=== PATIENT | female | born 1930 | race African-American/Black ===

== ENCOUNTER 2017-07-18 19:17 | Inpatient (IN) ==
[2017-07-18] MEDS ORDERED: SODIUM CHLORIDE 0.9% 500 ML IV STA (21:42)
[2017-07-18] MEDS ORDERED: PANTOPRAZOLE 40 MG VIAL IV STA (21:42)
[2017-07-18] MEDS ORDERED: PANTOPRAZOLE 40 MG VIAL IV ONE (22:03)
[2017-07-18 22:43] LABS: Basophils # 0.1 10*3/uL (0.0-0.2); Basophils % 0.8 % (0.0-0.8); Eosinophils % 0.1 % (0.00-10.9); Hematocrit 25.7 VOL% (35.7-47.0); Hemoglobin 8.1 GM/DL (12.0-16.0); Immature Granulocytes % 0.9 %; Immature Granulocytes Absolute 0.07 #; Lymphocytes # 0.8 10*3/uL (1.4-4.0); Lymphocytes % 10.4 % (21.3-54.2); Mean Corpuscular HGB Conc 31.5 GM/DL (32-36); Mean Corpuscular Hemoglobin 31 PG (27-34); Mean Corpuscular Volume 96.6 FL (87-102); Mean Platelet Volume 9.2 FL (9.6-12.0); Monocytes # 0.3 10*3/uL (0.11-0.8); Monocytes % 4.4 % (1.7-12.7); NRBC # 0.02 10*3/uL; Neutrophils # 6.2 10*3/uL (1.4-7.4); Neutrophils % 83.4 % (38.7-73.9); Platelet Count 303 T/CUMM (130-400); Red Blood Count 2.66 MC/CUMM (3.8-5.5); Red Cell Distribution Width 15.5 % (9.3-17.3); White Blood Count 7.4 T/CUMM (4-12)
[2017-07-18 22:51] LABS: PT Patient Result 10.9 SECS; Partial Thromboplastin Time 26.6 SECS (0-40)
[2017-07-18 23:02] LABS: Alanine Aminotransferase 14 U/L (13-56); Albumin 3.1 G/DL (3.4-5.0); Alkaline Phosphatase 66 U/L (45-117); Aspartate Amino Transferase 18 U/L (0-37); Bilirubin,Total < 0.39 MG/DL (0.2-1.0); Blood Urea Nitrogen 30 MG/DL (7-18); Calcium 8.3 MG/DL (8.5-10.1); Glucose 99 MG/DL (74-106); Osmolality,Calculated 282.5 MOS/KG (273-304); Potassium 4.2 MMOL/L (3.5-5.1); Sodium 139 MMOL/L (136-145); Total Protein 5.7 G/DL (6.4-8.3); Troponin I Only 0.024 NG/ML (0.00-0.045)
[2017-07-19] MEDS ORDERED: SODIUM CHLORIDE 0.9% 1,000 ML IV PRN (01:31)
[2017-07-19 06:21] LABS: Basophils % 0.7 % (0.0-0.8); Hematocrit 23.9 VOL% (35.7-47.0); Hemoglobin 7.6 GM/DL (12.0-16.0); Immature Granulocytes % 1.1 %; Immature Granulocytes Absolute 0.06 #; Lymphocytes # 1.2 10*3/uL (1.4-4.0); Lymphocytes % 20.8 % (21.3-54.2); Mean Corpuscular HGB Conc 31.8 GM/DL (32-36); Mean Corpuscular Hemoglobin 30 PG (27-34); Mean Corpuscular Volume 95.2 FL (87-102); Mean Platelet Volume 9.5 FL (9.6-12.0); Monocytes # 0.5 10*3/uL (0.11-0.8); Monocytes % 8.2 % (1.7-12.7); Neutrophils % 69.2 % (38.7-73.9); Platelet Count 286 T/CUMM (130-400); Red Blood Count 2.51 MC/CUMM (3.8-5.5); Red Cell Distribution Width 15.5 % (9.3-17.3); White Blood Count 5.7 T/CUMM (4-12)
[2017-07-19] MEDS: SODIUM CHLORIDE 0.9% 1,000 ML IV SCH ×2 (06:31→17:28)
[2017-07-19 06:53] LABS: Calcium 8.5 MG/DL (8.5-10.1); Osmolality,Calculated 285.3 MOS/KG (273-304); Potassium 4.5 MMOL/L (3.5-5.1)
[2017-07-19] MEDS: PANTOPRAZOLE 40 MG VIAL IV SCH (09:24)
[2017-07-19] MEDS ORDERED: HYOSCYAMINE 0.125 MG TABLET PO PRN (16:46)
[2017-07-19] MEDS: ONDANSETRON 4 MG/2 ML VIAL IV PRN (20:17)
[2017-07-20 05:12] LABS: Basophils % 0.3 % (0.0-0.8); Hematocrit 19.5 VOL% (35.7-47.0); Immature Granulocytes % 1.6 %; Immature Granulocytes Absolute 0.16 #; Mean Corpuscular HGB Conc 31.3 GM/DL (32-36); Mean Corpuscular Hemoglobin 29 PG (27-34); Mean Corpuscular Volume 91.5 FL (87-102); Mean Platelet Volume 9.9 FL (9.6-12.0); Monocytes # 0.4 10*3/uL (0.11-0.8); Monocytes % 4.1 % (1.7-12.7); NRBC # 0.11 10*3/uL; Neutrophils # 8.5 10*3/uL (1.4-7.4); Platelet Count 298 T/CUMM (130-400); Red Blood Count 2.13 MC/CUMM (3.8-5.5); Red Cell Distribution Width 19.2 % (9.3-17.3); White Blood Count 10.1 T/CUMM (4-12)
[2017-07-20 05:30] LABS: Hemoglobin 6.1 GM/DL (12.0-16.0)
[2017-07-20 05:47] LABS: Osmolality,Calculated 297.7 MOS/KG (273-304); Potassium 4.6 MMOL/L (3.5-5.1)
[2017-07-20] MEDS ORDERED: SODIUM CHLORIDE 0.9% 1,000 ML IV PRN ×2 (05:47→09:13)
[2017-07-20 05:50] LABS: % Iron Saturation 6.9 % (18-50); Ferritin 14.2 ng/ml (8-252)
[2017-07-20] MEDS ORDERED: oxyCODONE IR 5 MG TABLET PO ONE (06:34)
[2017-07-20] MEDS: PANTOPRAZOLE 40 MG VIAL IV SCH (09:23)
[2017-07-20 09:35] LABS: Sedimentation Rate-Westergren 13 MM/HR (0-30)
[2017-07-20] MEDS: SODIUM CHLORIDE 0.9% 1,000 ML IV SCH (11:55)
[2017-07-20 12:02] LABS: Folate 18.2 NG/ML (5.4-24.0); Vitamin B12 561 PG/ML (211-911)
[2017-07-20] MEDS ORDERED: INFLUENZA VIRUS VACCINE 0.5 ML SYRINGE IM ONE (12:20)
[2017-07-20] MEDS ORDERED: FUROSEMIDE 40 MG/4 ML VIAL IV ONE (14:07)
[2017-07-20] MEDS: hydrALAZINE 20 MG/1 ML VIAL IV PRN (18:23)
[2017-07-20 18:41] LABS: Hemoglobin 10.1 GM/DL (12.0-16.0)
[2017-07-20] MEDS: ONDANSETRON 4 MG/2 ML VIAL IV PRN (22:44)
[2017-07-21] MEDS: SODIUM CHLORIDE 0.9% 1,000 ML IV SCH ×3 (09:07→23:50)
[2017-07-21] MEDS: PANTOPRAZOLE 40 MG VIAL IV SCH (09:10)
[2017-07-21 09:15] LABS: Basophils # 0.1 10*3/uL (0.0-0.2); Basophils % 0.4 % (0.0-0.8); Hematocrit 24.9 VOL% (35.7-47.0); Immature Granulocytes % 1.8 %; Immature Granulocytes Absolute 0.26 #; Lymphocytes # 1.7 10*3/uL (1.4-4.0); Lymphocytes % 11.4 % (21.3-54.2); Mean Corpuscular HGB Conc 32.1 GM/DL (32-36); Mean Corpuscular Hemoglobin 29 PG (27-34); Mean Corpuscular Volume 90.9 FL (87-102); Mean Platelet Volume 9.1 FL (9.6-12.0); Monocytes # 1.4 10*3/uL (0.11-0.8); Monocytes % 9.6 % (1.7-12.7); NRBC # 0.64 10*3/uL; Neutrophils # 11.1 10*3/uL (1.4-7.4); Neutrophils % 76.8 % (38.7-73.9); Platelet Count 287 T/CUMM (130-400); Red Blood Count 2.74 MC/CUMM (3.8-5.5); White Blood Count 14.4 T/CUMM (4-12)
[2017-07-21 09:34] LABS: Calcium 7.5 MG/DL (8.5-10.1); Osmolality,Calculated 299.1 MOS/KG (273-304)
[2017-07-21] MEDS ORDERED: SODIUM CHLORIDE 0.9% 1,000 ML IV SCH (11:00)
[2017-07-21] MEDS ORDERED: ETOMIDATE 20 MG/10 ML VIAL IV ONE (12:17)
[2017-07-21] MEDS ORDERED: LIDOCAINE 2% 5 ML VIAL ONE (12:17)
[2017-07-21] MEDS ORDERED: PROPOFOL 200 MG/20 ML VIAL IV ONE (12:17)
[2017-07-21 13:09] LABS: Hemoglobin A1 (Alkaline) 97.1 % (96.5-98.5); Hemoglobin A2 (Alkaline) 2.9 % (1.5-3.5)
[2017-07-21] MEDS: hydrALAZINE 20 MG/1 ML VIAL IV PRN (15:42)
[2017-07-21] MEDS: ONDANSETRON 4 MG/2 ML VIAL IV PRN ×2 (16:44→20:44)
[2017-07-22] MEDS: SODIUM CHLORIDE 0.9% 1,000 ML IV SCH ×3 (02:40→23:54)
[2017-07-22] MEDS: PANTOPRAZOLE 40 MG VIAL IV SCH (09:09)
[2017-07-22] MEDS ORDERED: BISACODYL 5 MG TABLET PO ONE (12:00)
[2017-07-22] MEDS: ONDANSETRON 4 MG/2 ML VIAL IV PRN ×2 (12:36→19:36)
[2017-07-22] MEDS ORDERED: POLYETHYLENE GLYCOL POWDER 255 GM BOTTLE PO ONE (14:00)
[2017-07-22] MEDS ORDERED: MAGNESIUM CITRATE 300 ML BOTTLE PO ONE (21:00)
[2017-07-23 06:44] LABS: Osmolality,Calculated 294.6 MOS/KG (273-304); Potassium 3.9 MMOL/L (3.5-5.1)
[2017-07-23] MEDS ORDERED: SODIUM CHLORIDE 0.9% 1,000 ML IV PRN (06:54)
[2017-07-23] MEDS ORDERED: CALCIUM GLUCONATE 1,000 MG in SODIUM CHLORIDE 0.9% 100 ML IV ONE (06:55)
[2017-07-23] MEDS: PANTOPRAZOLE 40 MG VIAL IV SCH (08:55)
[2017-07-23] MEDS ORDERED: LIDOCAINE 1% 5 ML VIAL ONE (11:10)
[2017-07-23] MEDS ORDERED: PROPOFOL 200 MG/20 ML VIAL IV ONE (11:10)
[2017-07-23] MEDS ORDERED: ONDANSETRON 4 MG/2 ML VIAL ONE (11:10)
[2017-07-23] MEDS ORDERED: MAGNESIUM CITRATE 300 ML BOTTLE PO ONE (11:43)
[2017-07-23] MEDS: SODIUM CHLORIDE 0.9% 1,000 ML IV SCH ×2 (15:51→21:55)
[2017-07-24 07:10] LABS: Basophils % 0.8 % (0.0-0.8); Eosinophils # 0.1 10*3/uL (0.0-0.87); Eosinophils % 1.5 % (0.00-10.9); Hematocrit 24.6 VOL% (35.7-47.0); Immature Granulocytes % 1.1 %; Immature Granulocytes Absolute 0.06 #; Lymphocytes # 1.2 10*3/uL (1.4-4.0); Lymphocytes % 23.4 % (21.3-54.2); Mean Corpuscular HGB Conc 31.7 GM/DL (32-36); Mean Corpuscular Hemoglobin 28 PG (27-34); Mean Corpuscular Volume 89.5 FL (87-102); Mean Platelet Volume 8.9 FL (9.6-12.0); Monocytes # 0.5 10*3/uL (0.11-0.8); Monocytes % 8.8 % (1.7-12.7); NRBC # 0.17 10*3/uL; Neutrophils # 3.4 10*3/uL (1.4-7.4); Neutrophils % 64.4 % (38.7-73.9); Platelet Count 272 T/CUMM (130-400); Red Blood Count 2.75 MC/CUMM (3.8-5.5); Red Cell Distribution Width 15.9 % (9.3-17.3)
[2017-07-24 07:45] LABS: White Blood Count 5.2 T/CUMM (4-12)
[2017-07-24 07:46] LABS: Hemoglobin 7.8 GM/DL (12.0-16.0)
[2017-07-24] MEDS: PANTOPRAZOLE 40 MG VIAL IV SCH (09:49)
[2017-07-24 10:42] LABS: Apearance,Urine Slightly Hazy (Clear); Bacteria,Urine Many /HPF (Few); Bilirubin,Urine Negative (Negative); Blood, Urine Negative (Negative); Glucose,Urine (UA) Negative (Negative); Ketones,Urine Negative (Negative); Mucus,Urine Occasional /LPF (Occasional); Nitrite,Urine Negative (Negative); Protein,Urine Negative; Squamous Epithelial Cell,Urine Occasional /HPF (0-10); Urine Color Yellow (Yellow); Urine Specific Gravity 1.012 (1.001-1.035); Urine Urobilinogen < 2.0 EU/DL (0.2-1.0); WBC,Urine 1 /HPF (0-6)
[2017-07-24] MEDS ORDERED: FERROUS SULFATE 300 MG/5 ML UDCUP PO SCH (15:00)
[2017-07-24 16:39] VITALS: BP 168/74
[2017-07-25] MEDS ORDERED: PANTOPRAZOLE 40 MG TABLET PO SCH (09:00)
== END 2017-07-24 16:55 | disposition home or self-care (01) | DRG 378 ==
LOC: N.ED 19:17 → N.EDINP 07-19 01:24 → SUATTDRO 07-19 01:24 → N.3E 07-19 02:11 → N.ICU 07-20 11:16 → N.5E 07-23 15:43
PROVIDERS: ADMIT Hospitalist; ATTEND Internal Medicine Cardiovascular Disease

== ENCOUNTER 2020-02-03 06:43 | Inpatient (IN) ==
[2020-01-27 11:03] LABS: Basophils # 0.1 10*3/uL (0.0-0.2); Basophils % 2.1 % (0.0-0.8); Eosinophils # 0.1 10*3/uL (0.0-0.87); Eosinophils % 2.1 % (0.00-10.9); Hematocrit 41.4 VOL% (35.7-47.0); Hemoglobin 13.1 GM/DL (12.0-16.0); Immature Granulocytes % 0.8 %; Immature Granulocytes Absolute 0.04 #; Lymphocytes % 19.9 % (21.3-54.2); Mean Corpuscular HGB Conc 31.6 GM/DL (32-36); Monocytes % 9.8 % (1.7-12.7); Neutrophils % 65.3 % (38.7-73.9); Platelet Count 290 T/CUMM (130-400); Red Cell Distribution Width 19.3 % (9.3-17.3); White Blood Count 4.8 T/CUMM (4-12)
[2020-01-27 11:27] LABS: Alanine Aminotransferase 21 U/L (13-56); Albumin 3.7 G/DL (3.4-5.0); Alkaline Phosphatase 58 U/L (45-117); Aspartate Amino Transferase 18 U/L (0-37); Bilirubin,Total < 0.39 MG/DL (0.2-1.0); Blood Urea Nitrogen 29 MG/DL (7-18); Calcium 9.9 MG/DL (8.5-10.1); Estimated Glom Filtration Rate 48 ML/MIN; Glucose 83 MG/DL (74-106); Osmolality,Calculated 277.8 MOS/KG (273-304)
[~2020-02-03 06:43] MED LIST: ceFAZolin 1,000 MG VIAL ONE; ceFAZolin 1,000 MG in SYRINGE 1 EACH IV ONE
[2020-02-03] MEDS ORDERED: TALC INTRAPLEURAL POWDER 3 GM VIAL INTRAPLEUR ONE (06:59)
[2020-02-03] MEDS ORDERED: FAMOTIDINE 20 MG TABLET PO ONE (07:21)
[2020-02-03] MEDS: LACTATED RINGERS 1,000 ML IV SCH ×3 (07:35→11:22)
[2020-02-03] MEDS ORDERED: BUPIVACAINE 0.5% 50 ML VIAL ONE (09:26)
[2020-02-03] MEDS ORDERED: TISSUE ADHESIVE 1 EACH APPLICATOR TOP ONE (09:29)
[2020-02-03] MEDS ORDERED: HYDROmorphone 2 MG/1 ML VIAL IV PRN (09:45)
[2020-02-03] MEDS ORDERED: ONDANSETRON 4 MG/2 ML VIAL IV PRN (09:45)
[2020-02-03] MEDS ORDERED: fentaNYL 100 MCG/2 ML VIAL ONE (10:16)
[2020-02-03] MEDS ORDERED: KETOROLAC 30 MG/1 ML VIAL ONE (10:16)
[2020-02-03] MEDS ORDERED: ePHEDrine 50 MG/ML VIAL ONE (10:16)
[2020-02-03] MEDS ORDERED: DEXAMETHASONE 4 MG/1 ML VIAL ONE (10:16)
[2020-02-03] MEDS ORDERED: SEVOFLURANE 1 UNIT/15 MINUTE INH ONE (10:16)
[2020-02-03] MEDS ORDERED: propofoL 200 MG/20 ML VIAL IV ONE (10:16)
[2020-02-03] MEDS ORDERED: LIDOCAINE 2% 5 ML VIAL ONE (10:16)
[2020-02-03] MEDS ORDERED: ROCURONIUM 100 MG/10 ML VIAL IV ONE (10:17)
[2020-02-03] MEDS ORDERED: GLYCOPYRROLATE 0.4 MG/2 ML VIAL ONE (10:17)
[2020-02-03] MEDS ORDERED: ETOMIDATE 40 MG/20 ML VIAL IV ONE (10:17)
[2020-02-03] MEDS ORDERED: ACETAMINOPHEN 1,000 MG/100 ML VIAL IV ONE (10:17)
[2020-02-03] MEDS ORDERED: PHENYLEPHRINE 1 MG/10 ML SYRINGE IV ONE (10:17)
[2020-02-03] MEDS ORDERED: NEOSTIGMINE 10 MG/10 ML VIAL ONE (10:17)
[2020-02-03 10:24] LABS: Apearance,Urine CLEAR (Clear); Bacteria,Urine Occasional /HPF (Few); Bilirubin,Urine Negative (Negative); Blood, Urine Negative (Negative); Glucose,Urine (UA) Negative (Negative); Hyaline Casts,Urine 3 /LPF (0-3); Ketones,Urine Negative (Negative); Mucus,Urine Occasional /LPF (Occasional); Nitrite,Urine Negative (Negative); Protein,Urine Negative; RBC,Urine 1 /HPF (0-4); Squamous Epithelial Cell,Urine Occasional /HPF (0-10); Urine Color Yellow (Yellow); Urine Specific Gravity 1.011 (1.001-1.035); Urine Urobilinogen < 2.0 EU/DL (0.2-1.0)
[2020-02-03] MEDS: FERROUS SULFATE 325 MG TABLET PO SCH (21:04)
[2020-02-04] MEDS: ENOXAPARIN 40 MG/0.4 ML SYRINGE SUBCUT SCH (05:37)
[2020-02-04] MEDS: LACTATED RINGERS 1,000 ML IV SCH (08:00)
[2020-02-04] MEDS: ASPIRIN EC 81 MG TABLET PO SCH (08:21)
[2020-02-04] MEDS: SIMVASTATIN 20 MG TABLET PO SCH ×2 (08:21→08:22)
[2020-02-04] MEDS: hydroCHLOROthiazide 25 MG TABLET PO SCH (08:21)
[2020-02-04] MEDS: lisinopriL 20 MG TABLET PO SCH (08:21)
[2020-02-04] MEDS: FERROUS SULFATE 325 MG TABLET PO SCH ×2 (08:21→20:10)
[2020-02-04] MEDS ORDERED: SIMVASTATIN 20 MG TABLET PO SCH (21:00)
[2020-02-05] MEDS: LACTATED RINGERS 1,000 ML IV SCH (03:14)
[2020-02-05 07:09] VITALS: BP 156/71
[2020-02-05] MEDS: ENOXAPARIN 40 MG/0.4 ML SYRINGE SUBCUT SCH (08:05)
[2020-02-05] MEDS: FERROUS SULFATE 325 MG TABLET PO SCH (08:06)
[2020-02-05] MEDS: hydroCHLOROthiazide 25 MG TABLET PO SCH (08:06)
[2020-02-05] MEDS: lisinopriL 20 MG TABLET PO SCH (08:06)
[2020-02-05] MEDS: ASPIRIN EC 81 MG TABLET PO SCH (08:06)
== END 2020-02-05 10:27 | disposition home or self-care (01) | DRG 165 ==
LOC: N.OR 06:43 → N.SDSINP 06:47 → N.4E 11:31
PROVIDERS: ADMIT Surgery; ATTEND Surgery

== ENCOUNTER 2021-03-01 16:06 | Inpatient (IN) ==
[2021-03-01] MEDS ORDERED: PANTOPRAZOLE INJ 80 MG in SODIUM CHLORIDE 0.9% 100 ML IV STA (16:51)
[2021-03-01] MEDS ORDERED: PANTOPRAZOLE 40 MG VIAL IV ONE (16:57)
[2021-03-01 17:24] LABS: Basophils # 0.1 10*3/uL (0.0-0.2); Basophils % 1.6 % (0.0-0.8); Eosinophils % 0.8 % (0.00-10.9); Hematocrit 27.2 VOL% (35.7-47.0); Hemoglobin 8.1 GM/DL (12.0-16.0); Immature Granulocytes % 0.8 %; Immature Granulocytes Absolute 0.04 #; Lymphocytes # 0.7 10*3/uL (1.4-4.0); Lymphocytes % 13.1 % (21.3-54.2); Mean Corpuscular HGB Conc 29.8 GM/DL (32-36); Mean Platelet Volume 8.9 FL (9.6-12.0); Monocytes % 8.8 % (1.7-12.7); NRBC # 0.06 10*3/uL; Neutrophils % 74.9 % (38.7-73.9); Platelet Count 298 T/CUMM (130-400); Red Blood Count 2.64 MC/CUMM (3.8-5.5); Red Cell Distribution Width 15.5 % (9.3-17.3); White Blood Count 5.1 T/CUMM (4-12)
[2021-03-01 17:48] LABS: Alanine Aminotransferase 23 U/L (13-56); Alkaline Phosphatase 52 U/L (45-117); Aspartate Amino Transferase 21 U/L (0-37); Bilirubin,Total < 0.39 MG/DL (0.20-1.00); Blood Urea Nitrogen 48 MG/DL (7-18); Carbon Dioxide 24 MMOL/L (21-32); Estimated Glom Filtration Rate 24 ML/MIN; Glucose 101 MG/DL (74-106); Osmolality,Calculated 293.3 MOS/KG (273-304); Potassium 4.3 MMOL/L (3.5-5.1); Sodium 141 MMOL/L (136-145); Total Protein 7.1 G/DL (6.4-8.2)
[2021-03-01] MEDS ORDERED: SODIUM CHLORIDE 0.9% 1,000 ML IV SCH (18:00)
[2021-03-01] MEDS: PANTOPRAZOLE INJ 200 MG in SODIUM CHLORIDE 0.9% 250 ML IV SCH (18:07)
[2021-03-01 18:13] LABS: PT Patient Result 10.8 SECS (10.5-12.0)
[2021-03-01] MEDS ORDERED: SODIUM CHLORIDE 0.9% 1,000 ML IV PRN (18:55)
[2021-03-01] MEDS ORDERED: ACETAMINOPHEN 325 MG TABLET PO PRN (18:58)
[2021-03-01] MEDS ORDERED: ZALEPLON 5 MG CAPSULE PO PRN (18:58)
[2021-03-01] MEDS ORDERED: GLUCAGON 1 MG VIAL IM PRN (18:58)
[2021-03-01] MEDS ORDERED: diphenhydrAMINE CAP 25 MG CAPSULE PO PRN (18:58)
[2021-03-01] MEDS ORDERED: ONDANSETRON 4 MG/2 ML VIAL IV PRN (18:58)
[2021-03-01] MEDS ORDERED: NICOTINE 21 MG/24 HR PATCH TRANSDERM PRN (18:58)
[2021-03-01] MEDS ORDERED: guaiFENesin/DM ER 600-30 MG TABLET PO PRN (18:58)
[2021-03-01] MEDS ORDERED: hydrALAZINE 20 MG/1 ML VIAL IV PRN (18:58)
[2021-03-01] MEDS ORDERED: DEXTROSE 50% 25 GM/50 ML VIAL IV PRN (18:58)
[2021-03-01] MEDS: ALBUTEROL/IPRATROPIUM 3 ML NEB RESP TX SCH (19:50)
[2021-03-01 20:01] LABS: Basophils % 0.8 % (0.0-0.8); Eosinophils # 0.1 10*3/uL (0.0-0.87); Eosinophils % 1.4 % (0.00-10.9); Hematocrit 25.9 VOL% (35.7-47.0); Hemoglobin 7.9 GM/DL (12.0-16.0); Immature Granulocytes % 1.2 %; Immature Granulocytes Absolute 0.06 #; Lymphocytes # 0.8 10*3/uL (1.4-4.0); Lymphocytes % 16.3 % (21.3-54.2); Mean Corpuscular HGB Conc 30.5 GM/DL (32-36); Mean Corpuscular Volume 102.8 FL (87-102); Mean Platelet Volume 9.2 FL (9.6-12.0); NRBC # 0.04 10*3/uL; Neutrophils % 71.3 % (38.7-73.9); Platelet Count 303 T/CUMM (130-400); Red Blood Count 2.52 MC/CUMM (3.8-5.5); Red Cell Distribution Width 15.5 % (9.3-17.3); White Blood Count 4.9 T/CUMM (4-12)
[2021-03-01 20:29] LABS: Folate > 24.00 NG/ML (5.38-24.0); Vitamin B12 1524 PG/ML (211-911)
[2021-03-01] MEDS: SODIUM CHLORIDE 0.9% 1,000 ML IV SCH (20:45)
[2021-03-01 21:03] LABS: Sedimentation Rate-Westergren 55 MM/HR (0-30)
[2021-03-02 05:33] LABS: Calcium 9.1 MG/DL (8.5-10.1); Osmolality,Calculated 294.8 MOS/KG (273-304); Potassium 4.9 MMOL/L (3.5-5.1)
[2021-03-02 05:34] LABS: Basophils # 0.1 10*3/uL (0.0-0.2); Basophils % 1.5 % (0.0-0.8); Eosinophils # 0.1 10*3/uL (0.0-0.87); Eosinophils % 1.5 % (0.00-10.9); Hematocrit 31.6 VOL% (35.7-47.0); Immature Granulocytes % 1.2 %; Immature Granulocytes Absolute 0.05 #; Lymphocytes # 0.8 10*3/uL (1.4-4.0); Lymphocytes % 19.2 % (21.3-54.2); Mean Corpuscular HGB Conc 30.7 GM/DL (32-36); Mean Corpuscular Volume 100.3 FL (87-102); Monocytes % 10.4 % (1.7-12.7); NRBC # 0.03 10*3/uL; Neutrophils % 66.2 % (38.7-73.9); Platelet Count 257 T/CUMM (130-400); Red Cell Distribution Width 15.8 % (9.3-17.3)
[2021-03-02 05:41] LABS: Hemoglobin 9.7 GM/DL (12.0-16.0); Red Blood Count 3.15 MC/CUMM (3.8-5.5)
[2021-03-02] MEDS: ALBUTEROL/IPRATROPIUM 3 ML NEB RESP TX SCH ×2 (07:40→13:30)
[2021-03-02] MEDS ORDERED: LACTATED RINGERS 1,000 ML IV SCH (10:30)
[2021-03-02] MEDS ORDERED: propofoL 200 MG/20 ML VIAL IV ONE (11:10)
[2021-03-02] MEDS ORDERED: LIDOCAINE 2% 5 ML VIAL ONE (11:10)
[2021-03-02] MEDS: PANTOPRAZOLE INJ 200 MG in SODIUM CHLORIDE 0.9% 250 ML IV SCH (19:25)
[2021-03-03] MEDS: ALBUTEROL/IPRATROPIUM 3 ML NEB RESP TX SCH ×3 (00:12→09:03)
[2021-03-03] MEDS: SODIUM CHLORIDE 0.9% 1,000 ML IV SCH ×2 (00:49→05:35)
[2021-03-03] MEDS ORDERED: POLYETHYLENE GLYCOL POWDER 17 GM PACK PO SCH (09:00)
[2021-03-03 12:29] VITALS: BP 156/57
== END 2021-03-03 12:13 | disposition home or self-care (01) | DRG 378 ==
LOC: N.ED 16:06 → N.EDINP 18:58 → N.4E 21:46
PROVIDERS: ADMIT Internal Medicine; ATTEND Internal Medicine